=== PATIENT | female | born 1980 | race Caucasian/White ===

== ENCOUNTER 2017-05-05 22:58 | Emergency (ER) | payer BC ==
[2017-05-05] MEDS ORDERED: DICYCLOMINE HCL 10 MG/ML AMPUL IM ONE ×2 (23:22→23:24)
[2017-05-05] MEDS ORDERED: ONDANSETRON HCL 8 MG TABLET PO ONE (23:22)
[2017-05-05] MEDS ORDERED: ONDANSETRON HCL 8 MG TABLET ONE (23:24)
--- NOTE | 2017-05-05 23:26 | ERNOTE ---
Abdominal HPI - Narrative Date of Service: 05/05/17 - General Chief Complaint: Abdominal Pain Time Seen by Provider: 05/05/17 23:16 Source: patient Exam Limitations: no limitations - Immun/Allergies/Home Medications Immunizatons: IMMUNIZATION HX Immunizations Up to Date Yes History of Influenza Vaccine No Hx Pneumococcal Vaccination No Allergies/Adverse Reactions: Allergies No Known Drug Allergies Allergy (Verified 05/05/17 23:11) Home Medications: HOME MEDICATIONS ALPRAZolam [Xanax] 0.5 mg PO BID PRN 05/06/17 [Last Taken Unknown] Ciprofloxacin HCl 500 mg PO BID #20 tablet 05/06/17 [Last Taken Unknown] Glimepiride 4 mg PO DAILY 05/06/17 [Last Taken Unknown] HYDROcodone/ACETAMINOPHEN [[place] 5-325] 1 each PO Q4H PRN #20 tablet 05/06/17 [ Last Taken Unknown] Losartan Potassium [Cozaar] 50 mg PO DAILY 05/06/17 [Last Taken Unknown] Metoprolol Succinate [Toprol Xl] 100 mg PO DAILY 05/06/17 [Last Taken Unknown] Naproxen Sodium [Aleve] 220 mg PO BID PRN 05/06/17 [Last Taken Unknown] Ondansetron HCl [Zofran] 8 mg PO Q6H PRN #20 tablet 05/06/17 [Last Taken Unknown ] Phentermine HCl [Adipex-P] 18.75 mg PO DAILY 05/06/17 [Last Taken Unknown] Topiramate [Topamax] 25 mg PO DAILY 05/06/17 [Last Taken Unknown] buPROPion HCL [Wellbutrin XL] 150 mg PO DAILY 05/06/17 [Last Taken Unknown] metFORMIN HCL [Metformin HCl ER] 1,000 mg PO BID 05/06/17 [Last Taken Unknown] metroNIDAZOLE [Flagyl] 500 mg PO Q8H #30 tablet 05/06/17 [Last Taken Unknown] - History of Present Illness Narrative: Patient comes to the emergency department complaining of a diffuse primarily right sided abdominal pain. The patient states that a week ago she got sick with nausea, vomiting, diarrhea. She says these symptoms lasted for 24-36 hours. She felt better the next day however the following day she developed a crampy abdominal pain primarily in the epigastrium as well as the right upper and right lower quadrants. Food seems to make this better. Nothing seemed to make it worse. She continued to have diarrhea. She is continued to have nausea but no further vomiting. The patient says that she was so uncomfortable tonight she couldn't sleep. She rated the pain as a 6 out of 10. Nothing reamed really makes it worse except pressing on her abdomen. Food transiently improves the symptoms. Patient denies fever or chills she denies blood in her stool. She denies chest pain shortness of breath. She denies having similar symptoms in the past. No history of inflammatory or irritable bowel syndrome. Review of Systems - Review of Systems Constitutional: Present: See HPI EYE: Present: no symptoms reported ENT: Present: no symptoms reported Respiratory: Present: no symptoms reported Cardiology: Present: no symptoms reported Gastrointestinal/Abdominal: Present: See HPI, nausea, vomiting, diarrhea, abdominal pain Musculoskeletal: Present: no symptoms reported Skin: Present: no symptoms reported Neurological: Present: no symptoms reported Endocrine: Present: no symptoms reported Psych: Present: no symptoms reported All Other Systems: All systems neg except as marked - Patient's Past Medical History Patient History - Medical: Diabetes Type 2, Other Patient History - Cardiac/Respiratory: Hypertension Patient History - Cancer: Skin Patient History - Surgical Procedures: Cancer Surgery Patient History - Other: None LMP (Calendar): 05/04/17 - Social History Living Situations: home Psych History: Hx of Anxiety, Hx of Depression, Current tx/ever been on anti- depressants or anti-anxiety meds Smoking Status: Never smoker Alcohol Use: rarely Drug Use: none - Immunizations Immunizations Up to Date: Yes Hx Pneumococcal Vaccination: No History of Influenza Vaccine: No Physical Exam - Physical Exam General Appearance: Present: wd/wn, alert, no apparent distress Eye Exam: Normal inspection: bilateral, PERRL: bilateral Ears, Nose, Throat: Present: normal ENT inspection, normal pharynx Neck: Present: normal inspection, nontender, supple Respiratory: Present: no respiratory distress, lungs clear Cardiovascular/Chest: Present: regular rate, rhythm, no murmur Gastrointestinal/Abdominal: Present: normal bowel sounds, nondistended, other - patient has mild tenderness in the right side of the abdomen both upper and lower quadrants. Some mild to moderate discomfort in the epigastrium. Negative Wells's sign. Negative Rovsing sign. No definite rebound or guarding. Rectal exam is deferred Rectal Exam: Present: deferred Extremity Exam: Present: normal inspection, non-tender, normal range of motion, no edema Neurological Exam: Present: alert, oriented, normal mood/affect Skin Exam: Present: normal color, warm/dry Lymphatic Exam: Present: no adenopathy ED Progress - Results and Orders Patient's Lab Results:: I have reviewed the patient's lab results. - Vital Signs Patient's Vital Signs:: I have reviewed the patient's vital signs. Vital Signs: Vital Signs 05/05/17 23:04 Temperature 36.8 C Pulse Rate 78 Respiratory 18 Rate Blood Pressure 198/106 O2 Sat by Pulse 97 Oximetry - CT/Ultrasound CT/Ultrasound Narrative: CT scan abdomen and pelvis kidney stone protocol demonstrates 2 ill-defined 2 cm hypodensities with the Jimmy stranding and haziness of the fat in the right lower quadrant unclear etiology suggesting inflammatory or infectious process close follow-up recommended - Progress/Reassessment Chief Complaint: Abdominal Pain Plan - Plan Plan: At this time I will obtain basic abdominal labs including a CMP, CBC, lipase, urine, urine . If these are abnormal I will proceed to CAT scan or ultrasound is indicated. I'm giving her a dose of Bentyl as well as a dose of Zofran. I discussed with the patient the fact that her CAT scan is suggestive of mesenteric adenitis or another inflammatory/infectious process. I discussed the mechanism that this happens often after a viral infection. I have instructed her that I will give her 2 antibiotics, Cipro and Flagyl. She needs to take both for 10 days. I will also give her pain medicine in the form of [place] 03/06/2025 as well as Zofran 8 mg tablets. She will follow-up with her family doctor later in the week. Again this CAT scan was done without contrast. If she is continuing to have symptoms he will want a refill perform the CAT scan with contrast. Her primary care doctor is Dr. Carrizales. If she develops a high fever, blood in her stool, blood in her emesis, significant abdominal pain, or any new worrisome symptoms she will return to the ER Departure - Departure Clinical Impression: Mesenteric adenitis Disposition: Home self-care Condition: Stable Additional Instructions: As we discussed, you have a couple of areas on the right side in her abdomen next to the intestines which appear to be inflamed. I've a suspicion that these are lymph nodes. If this is the case, it is called "mesenteric adenitis" this is a reaction of the body to the previous infection. This should get better on its own I'm going to treat him with ciprofloxacin as well as Flagyl. Take both of these were all 10 days, even if you feel better after only 1 or 2. I take the prescribed Zofran to help with nausea and take [place] to help with severe pain. Call your family doctor and set up a follow-up appointment. He did if you develop fever, chills, bloody stool, blood in her emesis, increased abdominal pain, or any new worrisome symptoms she should return to the ER immediately Prescriptions: Ciprofloxacin HCl 500 mg PO BID #20 tablet HYDROcodone/ACETAMINOPHEN [[place] 5-325] 1 each PO Q4H PRN #20 tablet PRN Reason: Pain Ondansetron HCl [Zofran] 8 mg PO Q6H PRN #20 tablet PRN Reason: Nausea metroNIDAZOLE [Flagyl] 500 mg PO Q8H #30 tablet
[2017-05-05 23:38] LABS: Hemoglobin 13.5 gm/dL (12.5-16.0); Mean Cell Volume 79.6 fl (78-100); Mean Corpuscular Hemoglobin 26.2 pg (27-31); Mean Corpuscular Hgb Conc 32.9 g/dl (32-36); Neutrophil # 6.1 K/mm3 (1.3-6.0); Neutrophil % 64.8 % (42-75.0); Platelet Count 211 K/mm3 (150-450); Red Blood Count 5.15 M/mm3 (4.2-5.4); Red Cell Distribution Width 13.7 % (11.5-14.0); White Blood Count 9.3 K/mm3 (4.0-10.5)
[2017-05-05 23:52] LABS: Albumin * 3.5 gm/dl (3.4-5.0); Anion Gap 14.9 mmol/L (6.8-13.8); BUN/Creatinine Ratio 13.4 (9.0-21.6); Bilirubin, Total 0.4 mg/dL (0.0-1.1); Ca. Corrected For Albumin 9.2 mg/dL (8.4-10.2); Calcium * 9.1 mg/dL (7.9-10.9); Carbon Dioxide 25.8 mmol/L (24-32.6); Potassium 3.7 mmol/L (3.4-4.6); Total Protein 7.1 gm/dL (6.2-8.2)
[2017-05-06 00:09] LABS: Urine Bilirubin Negative (NEGATIVE); Urine Blood 50 /ul (NEGATIVE); Urine Ketone 5 mg/dL (NEGATIVE); Urine Nitrite Negative (NEGATIVE); Urine Protein 15 mg/dL (NEGATIVE); Urine Specific Gravity >=1.030 SP.GR. (1.005-1.010); Urine Urobilinogen Normal (NORMAL); Urine pH 5.5 pH (5.0-7.0)
[2017-05-06 00:23] LABS: Urine Appearance Clear; Urine Bacteria 1+; Urine Color Dark Yellow; Urine RBC None Seen /hpf (0-5); Urine WBC None Seen /hpf (0-5)
[2017-05-06] MEDS ORDERED: ONDANSETRON HCL/PF 2 MG/ML VIAL ONE (00:37)
[2017-05-06 05:16] VITALS: BP 162/99
== END 2017-05-06 02:46 | disposition home or self-care (01) ==
LOC: ER 22:58
DX: I88.0 Nonspecific mesenteric lymphadenitis (principal); E11.9 Type 2 diabetes mellitus without complications; I10 Essential (primary) hypertension; Z85.828 Personal history of other malignant neoplasm of skin